=== PATIENT | male | born 1945 | race Caucasian/White ===

== ENCOUNTER → 2016-10-10 | Outpatient (CLI) | payer MEDICARE | LOC: KOH-I 13:21 | DX: M25.562 Pain in left knee (principal) | CPT/HCPCS: 73562 ==

== ENCOUNTER 2021-02-07 19:57 | Observation (INO) | payer MEDICARE ==
[~2021-02-07] VITALS: Ht 185.4 cm; Wt 99.8 kg
[2021-02-07 21:05] LABS: HEMOGLOBIN 14.7 gm/dl (14.0-17.5); RED BLOOD COUNT 4.89 M/UL (4.20-5.50); WHITE BLOOD COUNT 5.4 K/UL (4.5-11.0)
[2021-02-07 21:31] LABS: BUN/CREATININE RATIO 18 (0-10)
[2021-02-08 08:24] LABS: RED BLOOD COUNT 4.64 M/UL (4.20-5.50)
[2021-02-08 08:33] LABS: WHITE BLOOD COUNT 6.8 K/UL (4.5-11.0)
[2021-02-08 08:54] LABS: BUN/CREATININE RATIO 18 (0-10)
[2021-02-08] MEDS ORDERED: METOPROLOL SUCC50 MG PO (13:58)
[2021-02-08] MEDS ORDERED: CRESTOR5 MG PO (13:58)
[2021-02-08] MEDS ORDERED: LOMOTIL 2.5-0.1 EACH PO (13:59)
[2021-02-08] MEDS ORDERED: ASPIRIN EC81 MG PO (14:04)
[2021-02-08] MEDS ORDERED: ELIQUIS 5 MG TAB5 MG PO (17:37)
[2021-02-08] MEDS ORDERED: DEXAMETHASONE 44 MG PO (17:37)
== END 2021-02-08 17:35 | disposition home or self-care (01) ==
LOC: ER1 19:57 → CDU 02-08 01:15
PROVIDERS: Physician Assistant; ADMIT Internal Medicine
DX: I48.91 Unspecified atrial fibrillation (principal); U07.1 COVID-19; J12.82 Pneumonia due to coronavirus disease 2019; I10 Essential (primary) hypertension; E78.5 Hyperlipidemia, unspecified; I25.2 Old myocardial infarction; I25.10 Atherosclerotic heart disease of native coronary artery without angina pectoris; M19.90 Unspecified osteoarthritis, unspecified site; Z88.0 Allergy status to penicillin; Z79.82 Long term (current) use of aspirin; Z79.899 Other long term (current) drug therapy; Z95.5 Presence of coronary angioplasty implant and graft; Z87.891 Personal history of nicotine dependence; Z95.1 Presence of aortocoronary bypass graft
CPT/HCPCS: ECHO; 71045; 80053; 82550; 82553; 83874; 83880; 84484; 85025; 85610; 85730; 93005; 93306; 99285; G0378; J2405; J7030; M0243